=== PATIENT | male | born 1950 | race Caucasian/White ===

== ENCOUNTER → 2017-02-28 | Outpatient (CLI) | payer OTHER | END | disposition home or self-care (01) | LOC: CDC 10:27 | DX: Z01.810 Encounter for preprocedural cardiovascular examination (principal); S83.232A Complex tear of medial meniscus, current injury, left knee, initial encounter | CPT/HCPCS: 93000 ==

== ENCOUNTER 2017-07-14 08:50 | Inpatient (IN) | payer OTHER ==
[~2017-07-14] VITALS: Ht 170.2 cm; Wt 72.6 kg
[2017-07-25] MEDS ORDERED: CRESTOR20 MG PO (12:06)
[2017-07-25] MEDS ORDERED: IRON325 M1 PO (12:06)
[2017-07-25] MEDS ORDERED: AVAPRO300 MG PO (12:06)
[2017-07-25] MEDS ORDERED: NORVASC5 MG PO (12:06)
[2017-07-28 10:44] VITALS: BP 126/83
[2017-07-28 17:33] VITALS: BP 128/76
[2017-07-28 19:55] VITALS: BP 137/87
[2017-07-28 23:52] VITALS: BP 128/77
[2017-07-29 04:07] VITALS: BP 115/66
[2017-07-29 07:48] LABS: HEMATOCRIT 32.9 % (38.0-50.0); MCV 90.6 FL (86-99)
[2017-07-29 07:55] VITALS: BP 122/65
[2017-07-29 08:18] LABS: ANION GAP 7 MEQ/L (2-14); CHLORIDE 106 MEQ/L (99-109); GFR ESTIMATE (CALCULATED) > 59 mL/min/; GLUCOSE 116 mg/dL (70-99); SAMPLE HEMOLYSIS CHECK 0; SAMPLE ICTERIC CHECK 0; SAMPLE LIPEMIA CHECK 0; SODIUM 141 MEQ/L (136-147); UREA NITROGEN (BUN) 16 mg/dL (9-23)
[2017-07-29] MEDS ORDERED: OXYCODONE HCL5 MG PO (09:41)
[2017-07-29] MEDS ORDERED: CELECOXIB200 MG PO (09:41)
[2017-07-29] MEDS ORDERED: XARELTO10 MG PO (09:41)
[2017-07-29 10:43] VITALS: BP 129/70
[2017-07-29 11:49] VITALS: BP 129/70
[2017-07-29 15:42] VITALS: BP 135/79
[2017-07-29 20:09] VITALS: BP 118/70
[2017-07-30 00:18] VITALS: BP 125/73
[2017-07-30 04:05] VITALS: BP 123/66
[2017-07-30 05:26] LABS: HEMATOCRIT 30.2 % (38.0-50.0); MCV 89.6 FL (86-99)
[2017-07-30 08:00] VITALS: BP 119/64
[2017-07-30 12:41] VITALS: BP 125/75
[2017-07-30] MEDS ORDERED: XARELTO1 EACH PO (12:47)
[2017-07-30 15:55] VITALS: BP 111/71
[2017-07-30 20:07] VITALS: BP 107/63
[2017-07-31 00:13] VITALS: BP 107/61
[2017-07-31 04:00] VITALS: BP 109/68
[2017-07-31] MEDS ORDERED: XARELTO15 MG PO ×2 (08:04→08:08)
[2017-07-31 08:15] VITALS: BP 126/76
[2017-07-31 12:14] VITALS: BP 111/64
== END 2017-07-31 13:40 | DRG 470 ==
LOC: 2SOUTH 08:50 → ENRESERV 07-27 21:19 → 3WEST 07-28 10:04 → 2SOUTH 07-28 10:04 → 3WEST 07-28 17:13
PROVIDERS: Orthopaedic Surgery Sports Medicine
PROC: 0SRD0J9 Replacement of Left Knee Joint with Synthetic Substitute, Cemented, Open Approach (ICD-10-PCS; principal; 2017-07-28)
DX: M17.12 Unilateral primary osteoarthritis, left knee (principal); T81.72XA Complication of vein following a procedure, not elsewhere classified, initial encounter; I82.4Z2 Acute embolism and thrombosis of unspecified deep veins of left distal lower extremity; Y83.1 Surgical operation with implant of artificial internal device as the cause of abnormal reaction of the patient, or of later complication, without mention of misadventure at the time of the procedure; I10 Essential (primary) hypertension; E78.2 Mixed hyperlipidemia; Z82.49 Family history of ischemic heart disease and other diseases of the circulatory system; Z83.3 Family history of diabetes mellitus
CPT/HCPCS: 73560; 80048; 85014; 85018; 86850; 86900; 86901; 90686; 93971; 97530 GP; C1713; J0690; J1885; J2250; J2405; J2795; J7030; J7050; J7120; L1820